=== PATIENT | female | born 1995 | race Caucasian/White ===

== ENCOUNTER 2017-03-09 22:51 | Emergency (ER) | payer MEDICAID ==
[~2017-03-09] VITALS: Ht 172.7 cm; Wt 79.5 kg
[~2017-03-09 22:51] MED LIST: ALBU8.5H3 INH
[2017-03-09 22:53] VITALS: BP 134/83
== END 2017-03-10 | disposition home or self-care (01) ==
LOC: ED 23:54
DX: S83.511A Sprain of anterior cruciate ligament of right knee, initial encounter (principal); X50.1XXA Overexertion from prolonged static or awkward postures, initial encounter; Y93.79 Activity, other specified sports and athletics; Y92.328 Other athletic field as the place of occurrence of the external cause; Y99.9 Unspecified external cause status
CPT/HCPCS: 29505; 99283

== ENCOUNTER 2017-08-13 22:49 | Emergency (ER) | payer MEDICAID ==
[~2017-08-13] VITALS: Ht 172.7 cm; Wt 80.7 kg
[~2017-08-13 22:49] MED LIST changes: -ALBU8.5H3 INH; +ALBU8.5H8 INH
[2017-08-13 22:58] VITALS: BP 154/84
[2017-08-13] MEDS ORDERED: OMEP-110 PO (23:09)
== END 2017-08-14 00:54 | disposition home or self-care (01) ==
LOC: ED 23:59
DX: S89.92XA Unspecified injury of left lower leg, initial encounter (principal); K21.9 Gastro-esophageal reflux disease without esophagitis; X58.XXXA Exposure to other specified factors, initial encounter; Y93.89 Activity, other specified; Y92.89 Other specified places as the place of occurrence of the external cause; Y99.8 Other external cause status
CPT/HCPCS: 99284

== ENCOUNTER 2019-08-30 18:37 | Outpatient (CLI) | payer OTHER ==
[~2019-08-30] VITALS: Ht 172.7 cm; Wt 86.3 kg
[~2019-08-30 18:37] MED LIST changes: +OMEP-110 PO
[2019-08-30 18:48] VITALS: BP 116/69
[2019-08-30 19:00] LABS: CULTURE INDICATED? NO; MICROSCOPIC NOT IND
[2019-08-30] MEDS ORDERED: PREN-59 PO (20:42)
== END 2019-08-30 20:49 | disposition home or self-care (01) ==
LOC: LDOP 18:37
PROVIDERS: ATTEND Obstetrics & Gynecology
DX: O26.892 Other specified pregnancy related conditions, second trimester (principal); Z3A.24 24 weeks gestation of pregnancy; R10.30 Lower abdominal pain, unspecified
CPT/HCPCS: 81003; 99201; G0463

== ENCOUNTER 2019-11-10 16:13 | Outpatient (CLI) | payer OTHER ==
[~2019-11-10] VITALS: Ht 172.7 cm; Wt 93.2 kg
[~2019-11-10 16:13] MED LIST changes: +PREN-59 PO
[2019-11-10 16:39] VITALS: BP 137/67
[2019-11-10 17:16] LABS: MICROSCOPIC NOT IND
[2019-11-10] MEDS ORDERED: BETAMETHASONE 6 MG/ML, 5ML IM ONE (17:42)
[2019-11-10] MEDS ORDERED: BETAMETHASONE 6 MG/ML, 5ML IM SCH (18:00)
== END 2019-11-10 18:08 | disposition home or self-care (01) ==
LOC: LDOP 16:13
PROVIDERS: ATTEND Obstetrics & Gynecology
DX: O26.893 Other specified pregnancy related conditions, third trimester (principal); R10.30 Lower abdominal pain, unspecified; Z3A.34 34 weeks gestation of pregnancy
CPT/HCPCS: 59025; 81003; 84112; 87086; 96372; 99211; J0702; G0463

== ENCOUNTER 2019-11-11 08:42 | Outpatient (CLI) | payer OTHER ==
[2019-11-11] MEDS ORDERED: BETAMETHASONE 6 MG/ML, 5ML IM ONE ×2 (18:10→18:30)
== END 2019-11-11 11:20 | disposition home or self-care (01) ==
LOC: LDOP 08:42
PROVIDERS: ATTEND Obstetrics & Gynecology
DX: O36.8130 Decreased fetal movements, third trimester, not applicable or unspecified (principal); Z3A.34 34 weeks gestation of pregnancy
CPT/HCPCS: 59025; 76819; 99211; J0702; G0463

== ENCOUNTER 2019-11-11 18:13 | Outpatient (CLI) | payer OTHER | END 2019-11-11 18:20 | disposition home or self-care (01) | LOC: LDOP 18:13 | PROVIDERS: ATTEND Obstetrics & Gynecology | DX: O26.893 Other specified pregnancy related conditions, third trimester (principal); G43.909 Migraine, unspecified, not intractable, without status migrainosus; Z3A.36 36 weeks gestation of pregnancy | CPT/HCPCS: 59025; 96372; 99211; G0463 ==

== ENCOUNTER 2019-11-20 20:06 | Inpatient (IN) | payer OTHER ==
[~2019-11-20] VITALS: Ht 172.7 cm; Wt 95.0 kg
[2019-11-20 21:20] LABS: MICROSCOPIC NOT IND
[2019-11-20] MEDS ORDERED: D5%-LACTATED RINGERS 1,000 ML IV SCH (22:26)
[2019-11-20] MEDS ORDERED: OXYTOCIN 30U/ 0.9% NaCL 500ML 500 ML IV ONE (22:26)
[2019-11-20] MEDS ORDERED: OXYTOCIN 30U/ 0.9% NaCL 500ML 500 ML IV PRN (22:26)
[2019-11-20] MEDS ORDERED: CALCIUM CARBONATE 500 MG TAB.CHEW ONE (22:27)
[2019-11-20] MEDS ORDERED: FENTANYL PF 100 MCG/2ML IVPush PRN (22:30)
[2019-11-20] MEDS ORDERED: TERBUTALINE 1 MG/ML, 1ML IVPush PRN (22:30)
[2019-11-20] MEDS ORDERED: FENTANYL PF 100 MCG/2ML IV PRN (22:30)
[2019-11-20] MEDS ORDERED: CALCIUM CARBONATE 500 MG TAB.CHEW PO PRN (22:30)
[2019-11-20] MEDS ORDERED: PENICILLIN GK 5,000,000 UNITS in DEXTROSE 5% 100 ML IVPB ONE (22:30)
[2019-11-20] MEDS ORDERED: TERBUTALINE 1 MG/ML, 1ML SQ PRN (22:30)
[2019-11-20] MEDS ORDERED: SODIUM CITRATE/CITRIC ACID 30 ML UDC PO PRN (22:30)
[2019-11-20] MEDS: PENICILLIN GK 2,500,000 UNITS in DEXTROSE 5% 100 ML IVPB SCH (22:30)
[2019-11-20 23:08] LABS: BASOPHILS # (AUTO) 0.03 x10^3/uL (0-0.1); BASOPHILS % (AUTO) 0 % (0-1); EOSINOPHILS # (AUTO) 0.19 x10^3/uL (0-0.4); EOSINOPHILS % (AUTO) 1 % (1-7); LYMPHOCYTES # (AUTO) 2.74 x10^3/uL (1-3.4); LYMPHOCYTES % (AUTO) 20 % (22-44); MD NO; MEAN CORPUSCULAR HEMOGLOBIN 30.8 pg (27.0-34.8); MEAN CORPUSCULAR HGB CONC 34.1 g/dL (32.4-35.8); MEAN CORPUSCULAR VOLUME 90.1 fL (80-100); MEAN PLATELET VOLUME 9.1 fL (7.4-10.4); MONOCYTES # (AUTO) 0.73 x10^3/uL (0.2-0.8); MONOCYTES % (AUTO) 5 % (2-9); NEUTROPHILS # (AUTO) 10.12 x10^3/uL (1.8-6.8); NEUTROPHILS % (AUTO) 73 % (42-75); PLATELET COUNT 161 x10^3/uL (130-400); RED BLOOD COUNT 4.27 x10^6/uL (3.82-5.3); RED CELL DISTRIBUTION WIDTH 12.8 % (9.6-15.2)
[2019-11-20] MEDS ORDERED: MISOPROSTOL 25 MCG TABLET ONE (23:37)
[2019-11-20] MEDS: MISOPROSTOL 25 MCG TABLET PO PRN (23:46)
[2019-11-21] MEDS ORDERED: LIDOCAINE 1%, 20ML ONE (01:36)
[2019-11-21] MEDS ORDERED: MISOPROSTOL 200 MCG TABLET ONE (01:36)
[2019-11-21] MEDS ORDERED: OXYTOCIN 30U/ 0.9% NaCL 500ML 500 ML ONE (01:37)
[2019-11-21] MEDS ORDERED: NEWBORN KIT ONE (01:39)
[2019-11-21 02:14] VITALS: BP 132/72
[2019-11-21] MEDS ORDERED: MISOPROSTOL 25 MCG TABLET ONE ×2 (03:47→07:49)
[2019-11-21] MEDS: PENICILLIN GK 2,500,000 UNITS in DEXTROSE 5% 100 ML IVPB SCH ×6 (03:54→23:18)
[2019-11-21] MEDS: MISOPROSTOL 25 MCG TABLET PO PRN ×2 (03:54→07:51)
[2019-11-21] MEDS: LACTATED RINGERS 1,000 ML IV SCH ×3 (06:51→20:07)
[2019-11-21] MEDS ORDERED: ONDANSETRON 2MG/ML, 2ML ONE ×2 (09:40→20:22)
[2019-11-21] MEDS: ONDANSETRON 2MG/ML, 2ML IVPush PRN (20:27)
[2019-11-22] MEDS ORDERED: FENTANYL/BUPIV./NS/PF 250 ML EPIDCONT SCH ×2 (00:45→17:56)
[2019-11-22] MEDS: PENICILLIN GK 2,500,000 UNITS in DEXTROSE 5% 100 ML IVPB SCH ×5 (03:30→20:21)
[2019-11-22] MEDS: LACTATED RINGERS 1,000 ML IV SCH ×2 (05:25→19:23)
[2019-11-22] MEDS ORDERED: ONDANSETRON 2MG/ML, 2ML ONE ×2 (09:35→21:46)
[2019-11-22] MEDS ORDERED: OXYTOCIN 30U/ 0.9% NaCL 500ML 500 ML ONE (14:20)
[2019-11-22] MEDS ORDERED: FENTANYL PF 500 MCG, BUPIVACAINE/PF 0.5%, 30ML 62.5 ML in SODIUM CHLORIDE 0.9% 177.5 ML EPIDCONT SCH (18:30)
[2019-11-22] MEDS: ONDANSETRON 2MG/ML, 2ML IVPush PRN (21:47)
[2019-11-23] MEDS: PENICILLIN GK 2,500,000 UNITS in DEXTROSE 5% 100 ML IVPB SCH (00:08)
[2019-11-23] MEDS ORDERED: OXYTOCIN 30U/ 0.9% NaCL 500ML 500 ML ONE (01:33)
[2019-11-23] MEDS: OXYTOCIN 30U/ 0.9% NaCL 500ML 500 ML IV SCH ×3 (01:56→21:56)
[2019-11-23] MEDS ORDERED: OXYcodone/APAP 5/325MG TABLET PO PRN (02:00)
[2019-11-23] MEDS ORDERED: MISOPROSTOL 200 MCG TABLET PR PRN (02:00)
[2019-11-23] MEDS ORDERED: DOCUSATE 100 MG CAPSULE PO PRN (02:00)
[2019-11-23] MEDS ORDERED: BISACODYL 10 MG SUPP PR PRN (02:00)
[2019-11-23] MEDS ORDERED: RHOGAM FROM BLOOD BANK 1 NOTE EA IM/IV ONE (02:00)
[2019-11-23] MEDS ORDERED: ACETAMINOPHEN 325 MG TABLET PO PRN (02:00)
[2019-11-23] MEDS ORDERED: HYDROcodone/APAP 5/325 TABLET PO PRN (02:00)
[2019-11-23] MEDS ORDERED: ONDANSETRON 2MG/ML, 2ML IV PRN (02:00)
[2019-11-23 03:25] VITALS: BP 121/74
[2019-11-23 08:10] VITALS: BP 101/67
[2019-11-23] MEDS: PRENATAL VIT/IRON/FA 1 EACH TABLET PO SCH (09:00)
[2019-11-23 09:38] LABS: MEAN CORPUSCULAR HEMOGLOBIN 30.8 pg (27.0-34.8); MEAN CORPUSCULAR HGB CONC 33.7 g/dL (32.4-35.8); MEAN CORPUSCULAR VOLUME 91.6 fL (80-100); MEAN PLATELET VOLUME 8.5 fL (7.4-10.4); PLATELET COUNT 133 x10^3/uL (130-400); RED BLOOD COUNT 3.73 x10^6/uL (3.82-5.3); RED CELL DISTRIBUTION WIDTH 12.7 % (9.6-15.2)
[2019-11-23 10:15] LABS: BASOPHILS # (AUTO) 0.03 x10^3/uL (0-0.1); BASOPHILS % (AUTO) 0 % (0-1); EOSINOPHILS # (AUTO) 0.02 x10^3/uL (0-0.4); EOSINOPHILS % (AUTO) 0 % (1-7); LYMPHOCYTES # (AUTO) 1.52 x10^3/uL (1-3.4); LYMPHOCYTES % (AUTO) 11 % (22-44); MD SCAN; MONOCYTES # (AUTO) 0.81 x10^3/uL (0.2-0.8); MONOCYTES % (AUTO) 6 % (2-9); NEUTROPHILS # (AUTO) 11.97 x10^3/uL (1.8-6.8); NEUTROPHILS % (AUTO) 83 % (42-75)
[2019-11-23 12:10] VITALS: BP 112/64
[2019-11-23] MEDS: IBUPROFEN 800 MG TABLET PO PRN (14:55)
[2019-11-23 16:15] VITALS: BP 126/73
[2019-11-23 20:05] VITALS: BP 117/67
[2019-11-24] MEDS: IBUPROFEN 800 MG TABLET PO PRN (01:02)
[2019-11-24] MEDS: OXYTOCIN 30U/ 0.9% NaCL 500ML 500 ML IV SCH (07:56)
[2019-11-24] MEDS: PRENATAL VIT/IRON/FA 1 EACH TABLET PO SCH (09:00)
[2019-11-24] MEDS ORDERED: IBUP-1222 PO (09:13)
[2019-11-24] MEDS ORDERED: MEASLES,MUMPS&RUBELLA VACC/PF 0.5 ML SQ-VACC ONE (09:30)
== END 2019-11-24 10:38 | disposition home or self-care (01) | DRG 806 ==
LOC: LDOP 20:06 → LDIP 22:00 → 2NW 11-23 03:10
PROVIDERS: ADMIT Obstetrics & Gynecology; ATTEND Obstetrics & Gynecology
PROC: 10E0XZZ Delivery of Products of Conception, External Approach (ICD-10-PCS; principal; 2019-11-23)
PROC: 3E0R3BZ Introduction of Anesthetic Agent into Spinal Canal, Percutaneous Approach (ICD-10-PCS; 2019-11-23)
PROC: 00HU33Z Insertion of Infusion Device into Spinal Canal, Percutaneous Approach (ICD-10-PCS; 2019-11-23)
PROC: 3E033VJ Introduction of Other Hormone into Peripheral Vein, Percutaneous Approach (ICD-10-PCS; 2019-11-23)
PROC: 0UQGXZZ Repair Vagina, External Approach (ICD-10-PCS; 2019-11-23)
PROC: 0UQMXZZ Repair Vulva, External Approach (ICD-10-PCS; 2019-11-23)
DX: O42.013 Preterm premature rupture of membranes, onset of labor within 24 hours of rupture, third trimester (principal); O72.1 Other immediate postpartum hemorrhage; Z37.0 Single live birth; O99.354 Diseases of the nervous system complicating childbirth; O26.873 Cervical shortening, third trimester; Z3A.36 36 weeks gestation of pregnancy; Z82.79 Family history of other congenital malformations, deformations and chromosomal abnormalities; G43.909 Migraine, unspecified, not intractable, without status migrainosus; O36.8130 Decreased fetal movements, third trimester, not applicable or unspecified; O70.0 First degree perineal laceration during delivery
CPT/HCPCS: 36415; J3490; 81003; 82962; 85025; 86592; 86850; 86900; 87086; 89060; G0378; J2405; J2540; J2590; J3010; J7120; Q0114

== ENCOUNTER 2020-11-30 16:45 | Emergency (ER) | payer OTHER ==
[~2020-11-30] VITALS: Ht 172.7 cm; Wt 84.2 kg
[~2020-11-30 16:45] MED LIST changes: +IBUP-1222 PO
--- NOTE | 2020-11-30 17:06 | NUR ---
PATIENT ARRIVES WITH NAUSEA AND HEADACHE, FEELING DEHYDRATED AND THROWING FOR TWO DAYS. SHE IS 12 WEEKS PREGANT. SHE HAS BEEN X2, HAS ONE CHILD AT HOME. DUE DATE 06/22. LMP 09/07
[2020-11-30] MEDS ORDERED: SODIUM CHLORIDE 0.9% 1,000ML IVBOLUS ONE (17:30)
[2020-11-30] MEDS ORDERED: METOCLOPRAMIDE 5 MG/ML, 2ML IVPush ONE (17:30)
[2020-11-30] MEDS ORDERED: SODIUM CHLORIDE FLUSH 10ML SYR IVF ONE (17:30)
[2020-11-30] MEDS ORDERED: METOCLOPRAMIDE 5 MG/ML, 2ML ONE (17:46)
[2020-11-30 17:59] LABS: MICROSCOPIC INDICATED
[2020-11-30 18:03] LABS: BASOPHILS % (AUTO) 0 % (0-1); EOSINOPHILS % (AUTO) 0 % (1-7); LYMPHOCYTES % (AUTO) 18 % (22-44); MEAN CORPUSCULAR HEMOGLOBIN 30.4 pg (27.0-34.8); MEAN CORPUSCULAR HGB CONC 34.6 g/dL (32.4-35.8); MEAN PLATELET VOLUME 9.6 fL (7.4-10.4); MONOCYTES % (AUTO) 3 % (2-9); NEUTROPHILS % (AUTO) 78 % (42-75); PLATELET COUNT 170 x10^3/uL (130-400); RED BLOOD COUNT 4.76 x10^6/uL (3.82-5.3); RED CELL DISTRIBUTION WIDTH 12.5 % (9.6-15.2)
[2020-11-30 18:04] LABS: MD NO
[2020-11-30 18:06] LABS: ALBUMIN 3.6 g/dL (3.4-5.0); ANION GAP 4 mmol/L (5-15); CALCIUM 8.5 mg/dL (8.5-10.1); CHLORIDE 105 mmol/L (98-107)
--- NOTE | 2020-11-30 18:36 | NUR ---
PATIENT STATES FEELING IMPROVED
[2020-11-30 19:40] VITALS: BP 116/63
--- NOTE | 2020-11-30 19:41 | NUR ---
Pt states feeling better and wanting to go. Pt states having nausea meds at home. Patient/Caregiver given discharge instructions and they have confirmed that they understand the instructions. Patient ambulatory with steady gait.
== END 2020-11-30 19:43 | disposition home or self-care (01) ==
LOC: ED 18:00
DX: O21.1 Hyperemesis gravidarum with metabolic disturbance (principal); Z3A.11 11 weeks gestation of pregnancy; K21.9 Gastro-esophageal reflux disease without esophagitis; G43.909 Migraine, unspecified, not intractable, without status migrainosus
CPT/HCPCS: 36415; 80048; 81001; 82040; 85025; 96361; 96374; 99283; J2765; J7030

== ENCOUNTER 2021-02-25 11:10 | Outpatient (CLI) | payer OTHER ==
[~2021-02-25] VITALS: Ht 172.7 cm; Wt 82.0 kg
[2021-02-25 12:35] LABS: MICROSCOPIC AUTO
[2021-02-25 12:47] VITALS: BP 123/68
== END 2021-02-25 13:47 | disposition home or self-care (01) ==
LOC: LDOP 11:10
PROVIDERS: ATTEND Obstetrics & Gynecology
DX: O62.9 Abnormality of forces of labor, unspecified (principal); Z3A.23 23 weeks gestation of pregnancy
CPT/HCPCS: 76817; 81001; 87086; 99211; G0463

== ENCOUNTER 2021-03-13 18:58 | Outpatient (CLI) | payer OTHER ==
[~2021-03-13] VITALS: Ht 172.7 cm; Wt 84.1 kg
[2021-03-13 19:48] LABS: MICROSCOPIC NOT IND
[2021-03-13 19:56] LABS: CLUE CELLS NONE SEEN (NONE SEEN)
[2021-03-13 19:58] LABS: WET PREP WBCS FEW (FEW)
[2021-03-13] MEDS ORDERED: DOXY1TAB3 PO (20:26)
== END 2021-03-13 21:32 | disposition home or self-care (01) ==
LOC: LDOP 18:58
PROVIDERS: ATTEND Obstetrics & Gynecology
DX: O42.912 Preterm premature rupture of membranes, unspecified as to length of time between rupture and onset of labor, second trimester (principal); O62.9 Abnormality of forces of labor, unspecified; Z3A.25 25 weeks gestation of pregnancy
CPT/HCPCS: 81003; 84112; 87210; 87808; 99211; G0463

== ENCOUNTER 2021-04-30 17:38 | Outpatient (CLI) | payer OTHER ==
[~2021-04-30 17:38] MED LIST changes: +DOXY1TAB3 PO
[2021-04-30 18:53] LABS: MICROSCOPIC INDICATED
== END 2021-04-30 19:48 | disposition home or self-care (01) ==
LOC: LDOP 17:38
PROVIDERS: ATTEND Obstetrics & Gynecology
DX: O62.2 Other uterine inertia (principal); O26.893 Other specified pregnancy related conditions, third trimester; R10.9 Unspecified abdominal pain; Z3A.32 32 weeks gestation of pregnancy
CPT/HCPCS: 59025; 81001; 84112; 87086

== ENCOUNTER 2021-06-07 18:57 | Outpatient (CLI) | payer OTHER ==
[~2021-06-07] VITALS: Ht 172.7 cm; Wt 90.0 kg
[2021-06-07 19:46] VITALS: BP 113/59
== END 2021-06-07 20:44 | disposition home or self-care (01) ==
LOC: LDOP 18:57
PROVIDERS: ATTEND Obstetrics & Gynecology
DX: O62.9 Abnormality of forces of labor, unspecified (principal); Z3A.37 37 weeks gestation of pregnancy
CPT/HCPCS: 59025; 89060; Q0114

== ENCOUNTER 2021-06-11 17:17 | Outpatient (CLI) | payer OTHER ==
[~2021-06-11] VITALS: Ht 172.7 cm; Wt 92.3 kg
[2021-06-11 18:34] VITALS: BP 113/64
== END 2021-06-11 18:45 | disposition home or self-care (01) ==
LOC: LDOP 17:17
PROVIDERS: ATTEND Obstetrics & Gynecology
DX: O16.3 Unspecified maternal hypertension, third trimester (principal); Z3A.38 38 weeks gestation of pregnancy